=== PATIENT | female | born 1980 | race Caucasian/White ===

== ENCOUNTER 2017-01-03 12:54 | Emergency (ER) | payer OTHER ==
--- NOTE | 2017-01-03 13:21 | ED ---
General Adult HPI - General Chief complaint: Alcohol Stated complaint: ETOH Time Seen by Provider: 01/03/17 13:00 Source: patient, EMS Mode of arrival: EMS Limitations: no limitations - History of Present Illness Initial comments: This is a 36-year-old female to history of alcohol abuse who presents to the emergency department from [facility] for suspected drug ingestion. The patient has a bed at [facility] and was going through intake today and was reportedly passing out while she was there. There is concern that she had ingested some other type of drug or medication and thus she was sent to the emergency department. The patient admits to drinking a half a fifth just before going to intake and also taking a dose of Ativan that her primary doctor had prescribed her. She also admits to smoking marijuana this morning. She denies any other drug ingestions. She states that she feels fine right now. She denies any nausea, vomiting, or diarrhea. No fevers or chills. No other complaints right now. - Related Data Allergies Allergy/AdvReac Type Severity Reaction Status Date / Time opiates AdvReac Nausea Uncoded 01/03/17 13:02 Review of Systems ROS Statement: Those systems with pertinent positive or pertinent negative responses have been documented in the HPI. ROS Other: All systems not noted in ROS Statement are negative. Past Medical History Past Medical History: No Reported History History of Any Multi-Drug Resistant Organisms: None Reported Past Surgical History: Section, Hernia Repair Past Psychological History: Anxiety, Depression Smoking Status: Current every day smoker Past Alcohol Use History: Heavy Past Drug Use History: Marijuana General Exam Limitations: no limitations Course Vital Signs 01/03/17 12:55 Temperature 98.9 F Pulse Rate 77 Respiratory 18 Rate Blood Pressure 105/51 O2 Sat by Pulse 99 Oximetry Medical Decision Making - Medical Decision Making This is a 36-year-old female presents emergency department for intoxication. The patient is been awake and alert since she's got here. She's been able to emulate on her own without assistance to the bathroom and back multiple times. I observed her walking and she was able to walk on her own. She's been awake since she got here. Spoke with [facility] Mrs. De Los Santos she is awake and alert and able to sign herself and she is able to go back over there. The boyfriend will take her back over there for treatment. She can return if she has worsening or changing symptoms. All questions were answered. - Lab Data Lab Results 01/03/17 01/03/17 Range/Units 13:07 13:07 Urine Color Light Yellow Urine Appearance Clear (Clear) Urine pH 7.0 (5.0-8.0) Ur Specific [place] 1.004 (1.001-1.035) Urine Protein Negative (Negative) Urine Glucose (UA) Negative (Negative) Urine Ketones Negative (Negative) Urine Blood Negative (Negative) Urine Nitrite Negative (Negative) Urine Bilirubin Negative (Negative) Urine Urobilinogen <2.0 (<2.0) mg/dL Ur Leukocyte Esterase Negative (Negative) Urine HCG, Qual Not Detected (Not Detectd) Urine Opiates Screen Not Detected (NotDetected) Ur Oxycodone Screen Not Detected (NotDetected) Urine Methadone Screen Not Detected (NotDetected) Ur Propoxyphene Screen Not Detected (NotDetected) Ur Barbiturates Screen Not Detected (NotDetected) U Tricyclic Antidepress Not Detected (NotDetected) Ur Phencyclidine Scrn Not Detected (NotDetected) Ur Amphetamines Screen Not Detected (NotDetected) U Methamphetamines Scrn Not Detected (NotDetected) U Benzodiazepines Scrn Not Detected (NotDetected) Urine Cocaine Screen Detected H (NotDetected) U Marijuana (THC) Screen Detected H (NotDetected) Disposition Clinical Impression: Alcohol intoxication Disposition: HOME SELF-CARE Condition: Stable Instructions: Alcohol Intoxication (ED) Additional Instructions: Go to [facility] Referrals: Nonstaff,Physician [REFERRING] - 1-2 days
[2017-01-03 13:37] LABS: Appearance,Urine Clear (Clear); Bilirubin,Urine Negative (Negative); Glucose,Urine (UA) Negative (Negative); Ketones,Urine Negative (Negative); Leukocyte Esterase,Urine Negative (Negative); Nitrite,Urine Negative (Negative); Protein,Urine Negative (Negative); Specific Gravity,Urine 1.004 (1.001-1.035); UA Billing (MACRO vs. MICRO) CHEM; Urobilinogen,Urine <2.0 mg/dL (<2.0)
[2017-01-03 14:23] VITALS: BP 98/50; PULSE 83; RESP 16; TEMP 99.3
== END 2017-01-03 14:15 | disposition home or self-care (01) ==
LOC: EC 12:54
DX: F10.120 Alcohol abuse with intoxication, uncomplicated (principal); F17.200 Nicotine dependence, unspecified, uncomplicated; Z88.5 Allergy status to narcotic agent
CPT/HCPCS: 80306; 81003; 81025; 99284